=== PATIENT | female | born 1940 | race Caucasian/White ===

== ENCOUNTER → 2017-10-27 | Outpatient (CLI) | payer MEDICARE | END | disposition home or self-care (01) | LOC: KCIC CT 11:22 | DX: J32.0 Chronic maxillary sinusitis (principal); J34.2 Deviated nasal septum | CPT/HCPCS: 70486 ==

== ENCOUNTER → 2018-02-22 | Outpatient (CLI) | payer MEDICARE | END | disposition home or self-care (01) | LOC: KCIC CT 10:26 | DX: J32.0 Chronic maxillary sinusitis (principal); I10 Essential (primary) hypertension; Z98.890 Other specified postprocedural states | CPT/HCPCS: 70486 ==

== ENCOUNTER → 2018-05-30 | Outpatient (CLI) | payer MEDICARE ==
[2015-11-29 19:30] VITALS: BP 188/82
[~2018-05-30] MED LIST: ASPI-630 PO; CRESTOR10 MG PO; HYDR25TA9 PO; LEVO125T5 PO; METO-269 PO
--- NOTE | 2018-05-30 13:37 | RAD ---
EXAM: AP pelvis, AP and frog-leg lateral views left hip DATE: 05/30/2018 12:00 AM INDICATION: LEFT HIP PAIN SINCE FALL 1 WEEK AGO COMPARISON: No Prior FINDINGS/ IMPRESSION: No evidence of acute fracture or dislocation. Bilateral hip joint spaces are preserved without significant degenerative/proliferative change. Lower lumbar spine degenerative changes are seen. Moderate colonic stool content limits evaluation of the sacrum inferiorly. Electronically signed by: Scott De La Fuente MD (05/30/2018 1:34 PM) [id number]
== END | disposition home or self-care (01) ==
LOC: RAD 11:20
PROVIDERS: ATTEND Family Medicine
DX: M25.552 Pain in left hip (principal); I10 Essential (primary) hypertension; E78.00 Pure hypercholesterolemia, unspecified; I25.10 Atherosclerotic heart disease of native coronary artery without angina pectoris; Z90.710 Acquired absence of both cervix and uterus; Z98.890 Other specified postprocedural states; Z91.81 History of falling; Z91.09 Other allergy status, other than to drugs and biological substances; Z91.013 Allergy to seafood
CPT/HCPCS: 73502

== ENCOUNTER → 2021-02-24 | Day surgery (SDC) | payer MEDICARE ==
[~2021-02-24] VITALS: Ht 170.2 cm; Wt 84.0 kg
[~2021-02-24] MED LIST changes: +AMIT25TA PO; +AMLO-186 PO; +CA C1TAB45 PO; +CALC200T23 PO; +HYDR-2145 PO; -HYDR25TA9 PO; +HYDROmorphone 2 MG/ML VIAL IVP PRN; +IV RINGERS,LACTATED 1000ML 1,000 ML IV SCH; +LEVO75TA5 PO; +LIDOCAINE 2% PF 5 ML VIAL. ONE; +METO25TA4 PO; +METO50TA6 PO; +MORPHINE SULFATE 2 MG/ML VIAL. IVP PRN; +OMEG1CAP27 PO; +PROCHLORPERAZINE 10 MG/2 ML VIAL. IVP PRN; +PROPOFOL 10 MG/ML (20ML) VIAL. IV ONE; +TIZA4TAB2 PO; +VITA1TAB19 PO; +fentaNYL PF VIAL 100 MCG/2 ML VIAL IVP PRN
[2021-02-24 12:36] VITALS: BP 138/75
[2021-02-24 13:39] VITALS: BP 146/76
== END | disposition home or self-care (01) ==
LOC: SURG 11:55
PROVIDERS: ATTEND Internal Medicine Gastroenterology
DX: K62.89 Other specified diseases of anus and rectum (principal); K57.30 Diverticulosis of large intestine without perforation or abscess without bleeding; K64.0 First degree hemorrhoids; I10 Essential (primary) hypertension; E78.00 Pure hypercholesterolemia, unspecified; I48.91 Unspecified atrial fibrillation; K21.9 Gastro-esophageal reflux disease without esophagitis; M19.90 Unspecified osteoarthritis, unspecified site; E11.9 Type 2 diabetes mellitus without complications; E03.9 Hypothyroidism, unspecified; Z79.82 Long term (current) use of aspirin; Z79.84 Long term (current) use of oral hypoglycemic drugs; Z79.899 Other long term (current) drug therapy; Z90.710 Acquired absence of both cervix and uterus; Z98.890 Other specified postprocedural states; Z72.89 Other problems related to lifestyle; Z88.1 Allergy status to other antibiotic agents; Z91.013 Allergy to seafood; Z88.8 Allergy status to other drugs, medicaments and biological substances; Z20.822 Contact with and (suspected) exposure to COVID-19
CPT/HCPCS: 45330; 87426; J2704